=== PATIENT | male | born 2000 | race Hispanic/Latino ===

== ENCOUNTER → 2025-03-02 | Outpatient (REF) | payer OTHER ==
[2025-03-02 14:01] LABS: GC DNA AMPLIFICATION NEGATIVE (NEGATIVE)
[2025-03-02 17:35] LABS: Trichomonas vaginalis (AMP) NOT DETECTED (NEGATIVE)
== END ==
LOC: M LAB REF 11:40
DX: Z20.2 Contact with and (suspected) exposure to infections with a predominantly sexual mode of transmission (principal)

== ENCOUNTER 2025-03-05 08:51 | Emergency (ER) | payer OTHER ==
[~2025-03-05] VITALS: Ht 167.6 cm; Wt 73.2 kg
[2025-03-05 08:54] VITALS: BP 138/60; TEMP 97.9; O2SAT 99
== END 2025-03-05 09:12 | disposition left against medical advice (07) ==
LOC: M ED 08:51
DX: Z53.21 Procedure and treatment not carried out due to patient leaving prior to being seen by health care provider (principal)

== ENCOUNTER → 2025-03-05 | Outpatient (CLI) | payer OTHER ==
[2025-03-05 11:29] LABS: HIV 1&2 SCREEN NEGATIVE (NEGATIVE)
== END ==
LOC: M LAB 09:20
DX: Z20.2 Contact with and (suspected) exposure to infections with a predominantly sexual mode of transmission (principal); Z11.3 Encounter for screening for infections with a predominantly sexual mode of transmission; Z72.89 Other problems related to lifestyle

== ENCOUNTER 2025-04-17 11:04 | Inpatient (IN) | payer OTHER ==
[~2025-04-17] VITALS: Ht 170.2 cm; Wt 71.8 kg
[2025-04-17] MEDS: ONDANSETRON 4MG ORAL DISINTEGRATING TAB PO ONE (13:32)
[2025-04-17 13:50] LABS: PLATELET COUNT, AUTOMATED 227 10^3/uL (150-450)
[2025-04-17] MEDS: NS (Normal Saline) 0.9% 1,000 ML IV ONE (14:09)
[2025-04-17 14:34] LABS: APPEARANCE, URINE HAZY (CLEAR); BACTERIA, URINE AUTO NEGATIVE (NEGATIVE); BILIRUBIN, URINE AUTO NEGATIVE (NEGATIVE); BLOOD, URINE BLOOD NEGATIVE (NEGATIVE); GLUCOSE, URINE (UA) AUTO NEGATIVE (NEGATIVE); KETONE, URINE AUTO NEGATIVE (NEGATIVE); LEUKOCYTE ESTERASE, URINE AUTO NEGATIVE (NEGATIVE); MUCUS, URINE SMALL (NEGATIVE); NITRITE, URINE AUTO NEGATIVE (NEGATIVE); PROTEIN, URINE AUTO 1+ mg/dL (NEGATIVE); RBC, URINE AUTO 1 /HPF (0-3); SPECIFIC GRAVITY URINE AUTO 1.010 (1.002-1.035); SQUAMOUS EPITHELIAL CELL UR AU 0 /HPF (0-6); UROBILINOGEN, URINE AUTO 0.2 mg/dL (0.0-2.0); WBC, URINE AUTO 2 /HPF (0-3)
[2025-04-17 15:07] LABS: CALCIUM LEVEL 9.4 MG/DL (8.5-10.1); CARBON DIOXIDE LEVEL 29.0 MMOL/L (20-31); CHLORIDE LEVEL 89.0 MMOL/L (98-107); CPK CREATINE PHOSPHOKINASE 5384.0 U/L (46-171); CREATININE FOR GFR 8.88 MG/DL (0.70-1.30); GLOMERULAR FILTRATION RATE 7.8 (>60); POTASSIUM SERUM 3.6 MMOL/L (3.5-5.1); SODIUM LEVEL 128.0 MMOL/L (136-145)
[2025-04-17] MEDS: NS (Normal Saline) 0.9% 1,000 ML IV SCH ×2 (15:15→21:19)
[2025-04-17] MEDS ORDERED: MOM 30 ML SUSPENSION UDC PO PRN (16:55)
[2025-04-17] MEDS ORDERED: HOME MED LIST COMPLETE! XX SCH (17:30)
[2025-04-17 19:12] LABS: MAGNESIUM LEVEL 2.9 MG/DL (1.8-2.4); PHOSPHORUS LEVEL 5.0 MG/DL (2.5-4.9)
[2025-04-17] MEDS: DOCUSATE SODIUM 100 MG CAPSULE PO SCH (21:00)
[2025-04-17 22:39] LABS: CALCIUM LEVEL 8.5 MG/DL (8.5-10.1); CARBON DIOXIDE LEVEL 25.0 MMOL/L (20-31); CHLORIDE LEVEL 94.0 MMOL/L (98-107); CREATININE FOR GFR 8.68 MG/DL (0.70-1.30); GLOMERULAR FILTRATION RATE 8.1 (>60); POTASSIUM SERUM 3.6 MMOL/L (3.5-5.1); SODIUM LEVEL 132.0 MMOL/L (136-145)
[2025-04-18] MEDS: ONDANSETRON 4MG 2ML VIAL IV PRN ×2 (01:09→22:01)
[2025-04-18] MEDS: ACETAMINOPHEN 325 MG TAB PO PRN (01:14)
[2025-04-18 08:09] LABS: PLATELET COUNT, AUTOMATED 161 10^3/uL (150-450)
[2025-04-18 09:00] LABS: ALT/SGPT 46.0 U/L (7.0-40); AST/SGOT 62.0 U/L (<34); CALCIUM LEVEL 8.3 MG/DL (8.5-10.1); CARBON DIOXIDE LEVEL 25.0 MMOL/L (20-31); CHLORIDE LEVEL 99.0 MMOL/L (98-107); CPK CREATINE PHOSPHOKINASE 3918.0 U/L (46-171); CREATININE FOR GFR 8.3 MG/DL (0.70-1.30); GLOMERULAR FILTRATION RATE 8.5 (>60); MAGNESIUM LEVEL 2.7 MG/DL (1.8-2.4); POTASSIUM SERUM 4.0 MMOL/L (3.5-5.1); SODIUM LEVEL 135.0 MMOL/L (136-145)
[2025-04-18 09:31] LABS: FREE T4 1.04 NG/DL (0.89-1.76)
[2025-04-18] MEDS: SODIUM BICARBONATE 75 MEQ in NS 0.45% 1,000 ML IV SCH (13:24)
[2025-04-18 16:29] VITALS: BP 154/85; TEMP 98.3; O2SAT 100
[2025-04-18 19:30] VITALS: BP 144/70; TEMP 98; O2SAT 100
[2025-04-18 23:48] VITALS: BP 135/71; TEMP 98.7; O2SAT 99
[2025-04-19] VITALS (7 sets, daily range): BP systolic 131–145; BP diastolic 63–88; TEMP 97.3–98.6; O2SAT 98–100
[2025-04-19 06:52] LABS: PLATELET COUNT, AUTOMATED 147 10^3/uL (150-450)
[2025-04-19 07:24] LABS: ALT/SGPT 48.0 U/L (7.0-40); AST/SGOT 42.0 U/L (<34); CALCIUM LEVEL 7.7 MG/DL (8.5-10.1); CARBON DIOXIDE LEVEL 28.0 MMOL/L (20-31); CHLORIDE LEVEL 99.0 MMOL/L (98-107); CREATININE FOR GFR 6.63 MG/DL (0.70-1.30); GLOMERULAR FILTRATION RATE 11.1 (>60); MAGNESIUM LEVEL 2.3 MG/DL (1.8-2.4); POTASSIUM SERUM 3.5 MMOL/L (3.5-5.1); SODIUM LEVEL 137.0 MMOL/L (136-145)
[2025-04-19] MEDS: LIDOCAINE 5% PATCH TD ONE (11:55)
[2025-04-19] MEDS: HEPARIN SOD 5000 UNITS/ML 1 ML VIAL/SYRINGE SQ SCH (11:56)
[2025-04-19] MEDS: KCL 20MEQ in NS 1000ML 1,000 ML IV SCH (11:56)
[2025-04-20 03:46] VITALS: BP 124/67; TEMP 97.6; O2SAT 97
[2025-04-20 07:11] LABS: PLATELET COUNT, AUTOMATED 173 10^3/uL (150-450)
[2025-04-20 07:28] LABS: ALT/SGPT 42.0 U/L (7.0-40); AST/SGOT 29.0 U/L (<34); CALCIUM LEVEL 8.2 MG/DL (8.5-10.1); CARBON DIOXIDE LEVEL 29.0 MMOL/L (20-31); CHLORIDE LEVEL 107.0 MMOL/L (98-107); CREATININE FOR GFR 4.96 MG/DL (0.70-1.30); GLOMERULAR FILTRATION RATE 15.8 (>60); MAGNESIUM LEVEL 2.0 MG/DL (1.8-2.4); POTASSIUM SERUM 5.0 MMOL/L (3.5-5.1); SODIUM LEVEL 141.0 MMOL/L (136-145)
[2025-04-20 07:39] VITALS: BP 157/87; TEMP 97.9; O2SAT 99
[2025-04-20] MEDS: LR 1,000 ML IV SCH (09:41)
[2025-04-20 11:35] VITALS: BP 146/76; TEMP 97.9; O2SAT 100
[2025-04-20] MEDS: LIDOCAINE 5% PATCH TD ONE (12:03)
[2025-04-20 20:09] VITALS: BP 148/80; TEMP 98.1; O2SAT 99
[2025-04-20 20:32] VITALS: BP 155/55; TEMP 97.9; O2SAT 99
[2025-04-21 04:45] VITALS: BP 136/65; TEMP 98.1; O2SAT 98
[2025-04-21 06:41] LABS: PLATELET COUNT, AUTOMATED 176 10^3/uL (150-450)
[2025-04-21 07:16] LABS: ALT/SGPT 45.0 U/L (7.0-40); AST/SGOT 27.0 U/L (<34); CALCIUM LEVEL 9.1 MG/DL (8.5-10.1); CARBON DIOXIDE LEVEL 31.0 MMOL/L (20-31); CHLORIDE LEVEL 102.0 MMOL/L (98-107); CREATININE FOR GFR 3.13 MG/DL (0.70-1.30); GLOMERULAR FILTRATION RATE 27.4 (>60); MAGNESIUM LEVEL 1.7 MG/DL (1.8-2.4); POTASSIUM SERUM 4.9 MMOL/L (3.5-5.1); SODIUM LEVEL 140.0 MMOL/L (136-145)
[2025-04-21 12:00] VITALS: BP 147/83; TEMP 97.8; O2SAT 99
[2025-04-21 17:32] VITALS: BP 162/78
[2025-04-21 20:33] VITALS: BP 147/77; TEMP 98.1; O2SAT 99
[2025-04-21 21:47] VITALS: BP 152/84
[2025-04-21] MEDS: RAMELTEON 8 MG TAB PO PRN (22:48)
[2025-04-22 05:13] VITALS: BP 128/88; TEMP 97.5; O2SAT 99
[2025-04-22 06:18] LABS: PLATELET COUNT, AUTOMATED 183 10^3/uL (150-450)
[2025-04-22 06:49] LABS: ALT/SGPT 46 U/L (7.0-40); AST/SGOT 25 U/L (<34); CALCIUM LEVEL 9.3 MG/DL (8.5-10.1); CARBON DIOXIDE LEVEL 34 MMOL/L (20-31); CHLORIDE LEVEL 101 MMOL/L (98-107); CREATININE FOR GFR 2.24 MG/DL (0.70-1.30); GLOMERULAR FILTRATION RATE 41.0 (>60); MAGNESIUM LEVEL 1.5 MG/DL (1.8-2.4); POTASSIUM SERUM 5.3 MMOL/L (3.5-5.1); SODIUM LEVEL 139 MMOL/L (136-145)
[2025-04-22] MEDS: MAG SULF 1GM/100ML (MAG RUN) 1 GM in IV 1 EA IV SCH (07:58)
[2025-04-22] MEDS: PATIROMER SORBITEX CALCIUM 8.4GM POWDER PACKET PO ONE (08:00)
[2025-04-22] MEDS ORDERED: ONDA-282 PO (11:50)
[2025-04-22 12:58] LABS: HEPATITIS C VIRUS ABY INDEX < 0.02 INDEX (<0.8)
[2025-04-22 14:40] LABS: CALCIUM LEVEL 9.1 MG/DL (8.5-10.1); CARBON DIOXIDE LEVEL 33.0 MMOL/L (20-31); CHLORIDE LEVEL 97.0 MMOL/L (98-107); CREATININE FOR GFR 1.91 MG/DL (0.70-1.30); GLOMERULAR FILTRATION RATE 49.6 (>60); POTASSIUM SERUM 4.7 MMOL/L (3.5-5.1); SODIUM LEVEL 136.0 MMOL/L (136-145)
== END 2025-04-22 16:04 | disposition home or self-care (01) | DRG 683 ==
LOC: M ED 12:42 → M ED INP 17:15 → M PCU 04-18 16:19 → M MSPAV 04-20 11:31
PROVIDERS: ADMIT Internal Medicine; ATTEND Internal Medicine
PROC: B246ZZZ Ultrasonography of Right and Left Heart (ICD-10-PCS; principal; 2025-04-19)
DX: N17.9 Acute kidney failure, unspecified (principal); M62.82 Rhabdomyolysis; E87.1 Hypo-osmolality and hyponatremia; R11.2 Nausea with vomiting, unspecified; S00.93XA Contusion of unspecified part of head, initial encounter; Y04.2XXA Assault by strike against or bumped into by another person, initial encounter; E86.0 Dehydration; E87.5 Hyperkalemia; E83.42 Hypomagnesemia; R74.01 Elevation of levels of liver transaminase levels; R00.1 Bradycardia, unspecified; M54.50 Low back pain, unspecified

== ENCOUNTER 2025-06-26 11:12 | Emergency (ER) | payer OTHER ==
[~2025-06-26] VITALS: Ht 175.3 cm; Wt 72.7 kg
[~2025-06-26 11:12] MED LIST: ONDA-282 PO
[2025-06-26 11:17] VITALS: BP 146/76; TEMP 97.9; O2SAT 100
== END 2025-06-26 15:07 | disposition left against medical advice (07) ==
LOC: M ED 11:12
DX: R20.2 Paresthesia of skin (principal)